=== PATIENT | female | born 1995 | race Caucasian/White ===

== ENCOUNTER 2021-03-04 15:43 | Emergency (ER) | payer OTHER ==
[~2021-03-04] VITALS: Ht 157.5 cm; Wt 56.7 kg
[~2021-03-04 15:43] MED LIST: CARAFATE SU1 G/10 ML; CIPRO500 MG PO; KETO10TA2 PO
[2021-03-04] MEDS ORDERED: TYLENOL (18:00)
== END 2021-03-04 21:26 | disposition home or self-care (01) ==
LOC: ER 15:43
DX: J02.9 Acute pharyngitis, unspecified (principal); J03.90 Acute tonsillitis, unspecified; B34.9 Viral infection, unspecified